=== PATIENT | male | born 1965 | race Hispanic/Latino ===

== ENCOUNTER 2018-11-26 19:37 | Emergency (ER) | payer OTHER, SELFPAY ==
[2018-11-26] MEDS ORDERED: ACETAMINOPHEN EXTRA STRENGTH 500 MG TABLET ONE (20:41)
== END 2018-11-26 20:47 | disposition home or self-care (01) ==
LOC: EDH 19:37
DX: S00.81XA Abrasion of other part of head, initial encounter (principal); Z88.1 Allergy status to other antibiotic agents; Z79.899 Other long term (current) drug therapy; W50.0XXA Accidental hit or strike by another person, initial encounter; Y93.89 Activity, other specified; Y92.89 Other specified places as the place of occurrence of the external cause; Y99.8 Other external cause status
CPT/HCPCS: 70450

== ENCOUNTER 2019-09-25 09:58 | Emergency (ER) | payer BC, OTHER ==
[2019-09-25 10:46] LABS: INR 2.83 (0.85-1.15); PROTHROMBIN TIME 29.4 SEC (9.6-11.6)
== END 2019-09-25 12:08 | disposition home or self-care (01) ==
LOC: EDH 09:58
DX: S93.401A Sprain of unspecified ligament of right ankle, initial encounter (principal); Z88.2 Allergy status to sulfonamides; X58.XXXA Exposure to other specified factors, initial encounter; Y93.01 Activity, walking, marching and hiking; Y92.481 Parking lot as the place of occurrence of the external cause; Y99.8 Other external cause status
CPT/HCPCS: 36415; 73610; 73630; 85610